=== PATIENT | male | born 1955 | race Caucasian/White ===

== ENCOUNTER 2016-02-29 09:12 | Day surgery (SDC) | payer MEDICARE, MEDICAID ==
[~2016-02-29] VITALS: Ht 170.2 cm; Wt 96.8 kg
[2016-02-29] MEDS ORDERED: METO-407 PO (09:59)
[2016-02-29] MEDS ORDERED: AMLO-147 PO (10:00)
[2016-02-29] MEDS ORDERED: ASPI-664 PO (10:00)
[2016-02-29] MEDS ORDERED: ATOR20TA38 PO (10:01)
[2016-02-29] MEDS ORDERED: VITA1TAB83 PO (10:01)
[2016-02-29] MEDS ORDERED: CALC667C PO (10:03)
[2016-02-29] MEDS ORDERED: CHOL100062 PO (10:04)
[2016-02-29] MEDS ORDERED: GABA100C14 PO (10:05)
[2016-02-29] MEDS ORDERED: CLON-379 PO (10:05)
[2016-02-29] MEDS ORDERED: APR50 PO (10:06)
[2016-02-29] MEDS ORDERED: LANT3I SC (10:07)
[2016-02-29] MEDS ORDERED: LISI40TA9 PO (10:07)
[2016-02-29] MEDS ORDERED: NOVO3I SC (10:09)
[2016-02-29] MEDS ORDERED: NEPH PO (10:09)
[2016-02-29] MEDS ORDERED: [UNRECOGNIZED DRUG - CODE] IM (10:10)
[2016-02-29] MEDS ORDERED: DOCU-159 PO (10:10)
[2016-02-29 10:32] LABS: BASOPHILS % 0.5 % (0.0-2.0); EOSINOPHILS # 0.2 10^3/ul (0.0-0.5); HEMATOCRIT 31.1 % (42.0-52.0); HEMOGLOBIN 10.5 g/dl (14.0-18.0); LYMPHOCYTES # 1.2 10^3/ul (0.8-2.9); LYMPHOCYTES % 21.2 % (15.0-51.0); MEAN CORPUSCULAR HGB CONC 33.8 g/dl (32.0-37.0); MEAN CORPUSCULAR VOLUME 97.6 fl (82.0-101.0); MEAN PLATELET VOLUME 7.5 fl (7.4-10.4); MONOCYTE # 0.4 10^3/ul (0.3-0.9); MONOCYTES % 7.2 % (0.0-11.0); NEUTROPHIL # 3.7 10^3/ul (1.6-7.5); NEUTROPHILS % 67.1 % (39.0-77.0); PLATELET COUNT 159 10^3/UL (140-440); RED BLOOD COUNT 3.19 10^6/ul (4.70-6.10); RED CELL DISTRIBUTION WIDTH 17.7 % (11.5-14.5); UNCORRECTED WBC 5.5 10^3/ul (4.8-10.8); WHITE BLOOD COUNT 5.5 10^3/ul (4.8-10.8)
[2016-02-29 10:33] LABS: CONDITION 1; LH ANALYZER COMMENTS 1
[2016-02-29 10:45] LABS: CREATININE 9.79 mg/dl (0.61-1.24); POTASSIUM 4.5 mmol/L (3.5-5.1)
[2016-02-29 10:49] LABS: CALCIUM 8.8 mg/dl (8.4-10.2)
--- NOTE | 2016-02-29 10:50 | RADRPT ---
PROCEDURE: XR Chest. CLINICAL INDICATION: Chest pain , preoperative, renal failure TECHNIQUE: Single portable view of the chest was obtained COMPARISON: None FINDINGS: The heart is enlarged. The lungs are clear. There is no pleural effusion or pneumothorax. RPTAT: AA IMPRESSION: Mild Cardiomegaly. .Ran Domingo MD, MD Date Time Electronically viewed and signed by .Ran Domingo MD, on 02/29/2016 10:50 .S/
[2016-02-29] MEDS ORDERED: HEPARIN 1000 UNITS/ML 10 ML INJ ONE (10:55)
[2016-02-29] MEDS ORDERED: LIDOCAINE 1% (MDV) 20 ML INJ ONE (10:55)
[2016-02-29] MEDS ORDERED: IODIXANOL LOCM 100 ML BTL ONE (10:55)
[2016-02-29] MEDS ORDERED: FENTAnyl 50 MCG/ML VIAL ONE (10:55)
[2016-02-29] MEDS ORDERED: MIDAZOLAM 1 MG/ML 2 ML INJ ONE (10:55)
[2016-02-29] MEDS ORDERED: HEPARIN 1000 UNITS/NS (A-LINE) 1,000 ML ONE (10:55)
[2016-02-29 11:00] LABS: INR 1.08; PARTIAL THROMBOPLASTIN TIME 27.6 Sec (25.0-35.0); PT RATIO 1.1
[2016-02-29 11:23] VITALS: BP 128/66; PULSE 81; RESP 18; Ht 170.2 cm; Wt 96.8 kg
--- NOTE | 2016-02-29 11:38 | PDOCDIS ---
Discharge Instructions DIAGNOSIS Discharge Diagnosis: ESRD CONDITION Patient Condition: Good HOME CARE INSTRUCTIONS: Special Diet: RENAL ACTIVITY: Activity Restrictions: Slowly Increase Activity Rest between Activity Avoid heavy lifting Do not Drive Do not operate Machinery Do not operate Power Tool Avoid Heavy Housework Bathing Restrictions: Shower FOLLOW UP/APPOINTMENTS Appointments MAY REMOVE DRESSING TOMORROW FOLLOWUP IN 2 WEEKS JOSHUA SCALES MD Feb 29, 2016 11:38
[2016-02-29 11:55] VITALS: BP 125/72; PULSE 77; RESP 18
--- NOTE | 2016-02-29 14:39 | OPR ---
DATE OF OPERATION: 02/29/2016 SURGEON: Sean Mata MD FLUOROSCOPY MACEDO: Dr. Jc Dc. PREOPERATIVE DIAGNOSES: End-stage renal disease and central stenosis. POSTOPERATIVE DIAGNOSES: End-stage renal disease and central stenosis. ANESTHESIA: Local with sedation. ESTIMATED BLOOD LOSS: Minimal. COMPLICATIONS: None. HEPARIN: 5000 units of heparin intravenously. CONTRAST: As recorded. ACCESS: 5-Maltese sheath. Left upper extremity fistula. CLOSURE: Manual compression and 3-0 nylon suture. INDICATIONS: This is a 60-year-old gentleman who presented with an aneurysmal left upper extremity fistula with increased velocities. The patient had some malfunctioning with his fistula during his dialysis session. The patient had been informed of alternatives, risks and benefits of a venogram b alloon angioplasty and stenting. Risks including but not limited to bleeding, thrombosis, embolizat ion, myocardial infarction, , stroke, device malfunction, infection nephrotoxicity and has agre ed to proceed. PROCEDURE: 1. Ultrasound-guided access of the left upper extremity fistula, photo-recorded. 2. Proximal axillary vein venoplasty with a [place] 8 x 6 mm balloon. 3. Central venogram (including subclavian vein, superior vena cava, internal jugular vein). 4. Left subclavian and brachiocephalic vein venoplasty with a [place] 8 x 6 mm balloon. FINDINGS: 1. Patent fistula, patent axillary vein, except in the mid aspect has some focal stenosis, patent l eft subclavian vein with a stent graft that has been placed that is patent. 2. At the distal aspect of the stent, there is a significant stenosis which entails a brachiocephal ic vein and the distal subclavian vein. 3. Patent superior vena cava. DESCRIPTION OF PROCEDURE: The patient was brought into the angio suite and positioned in supine pos ition on the fluoroscopic table. Sedation was administered without complications. Left upper extre mity was shaved, prepped and draped in the usual standard sterile fashion. A timeout and the approp riate site was marked and confirmed. Local anesthesia was infiltrated in the region of the left upp er extremity fistulogram. The fistula was then cannulated with a micro access needle under ultrasou nd guidance and guidewire was advanced into the distal fistula tract under fluoroscopic guidance. T he needle was removed and a microcatheter was placed. Multi ____ fistulogram and central venogram w as conducted. Findings are noted as above. Left upper extremity axillary vein was identified to jain ve a focal stenosis in the mid aspect of the axillary vein. Further distal to the stent graft that has been placed in the subclavian vein in the distal aspect, there was significant stenosis which al so entailed the proximal aspect of the brachiocephalic vein. This area was in the area of the thora cic outlet as well. Based on these findings, a 5-Maltese sheath was placed over a wire. Using a [employer] ros[employer] 8 x 6 mm balloon, we performed venoplasty of the central stenosis and axillary vein. There was adequate finding in the axillary vein; however, in the area of the clavicular curve which was dista l to the stent graft, there was still some residual stenosis. It seems that despite using a balloon to its maximal inflation, there was no change. At this point, there was satisfactory flow through the fistula tract and into the central vein. No further intervention was performed. The patient to lerated the procedure well. All catheters and wires were removed and using a 3-0 nylon suture to cl ose the puncture site. Manual compression was also applied. The patient was taken to postanesthesi a care unit in stable condition. PLAN: We will plan to have the patient follow up with us in 4 to 6 weeks in which he will undergo f istula ultrasound. He may require further intervention in the near future if that area has a recurr ence of his neointimal hyperplasia. Dictated By: SEAN CHONG/SALO Conf#: [id number] DID#: [id number]
--- NOTE | 2016-02-29 21:13 | RADRPT ---
Vent Rate: 73 bpm RR Interval: 0 msec OR Interval: 186 msec QRS Duration: 78 msec QT Interval: 424 msec QTC Interval: 467 msec P-R-T [place]: 54 - 8 - 18 degrees Normal sinus rhythm Normal ECG Electronically Signed By: Quinn Mckeon [id number]
== END 2016-02-29 15:38 | disposition home or self-care (01) ==
LOC: SDS 09:12
PROVIDERS: ATTEND Student in an Organized Health Care Education/Training Program
DX: I12.0 Hypertensive chronic kidney disease with stage 5 chronic kidney disease or end stage renal disease (principal); N18.6 End stage renal disease; Z99.2 Dependence on renal dialysis; I87.1 Compression of vein; E11.9 Type 2 diabetes mellitus without complications; I25.10 Atherosclerotic heart disease of native coronary artery without angina pectoris; E78.00 Pure hypercholesterolemia, unspecified
CPT/HCPCS: 37248; 37249; 71010; 80048; 85025; 85610; 85730; 93005; C1725; C1887; C1894; J1644; J2250; J3010; Q9967

== ENCOUNTER 2017-01-07 11:37 | Inpatient (IN) | payer MEDICARE, MEDICAID ==
[~2017-01-07] VITALS: Ht 170.2 cm; Wt 100.0 kg
[~2017-01-07 11:37] MED LIST: AMLO-147 PO; ASPI-664 PO; ATOR20TA38 PO; CALC667C PO; CHOL100062 PO; CLON-379 PO; DOCU-159 PO; GABA100C14 PO; HYDR-3672 PO; LANT3I SC; LISI40TA9 PO; METO-407 PO; NEPH PO; NOVO3I SC; VITA1TAB83 PO; [UNRECOGNIZED DRUG - CODE] IM
[2017-01-07 11:39] VITALS: Ht 170.2 cm; Wt 100.0 kg
[2017-01-07 11:56] LABS: BASOPHILS % 0.5 % (0.0-2.0); EOSINOPHILS # 0.2 10^3/ul (0.0-0.5); EOSINOPHILS % 3.6 % (0.0-7.0); HEMATOCRIT 28.7 % (42.0-52.0); HEMOGLOBIN 10.1 g/dl (14.0-18.0); LYMPHOCYTES # 1.7 10^3/ul (0.8-2.9); LYMPHOCYTES % 27.3 % (15.0-51.0); MEAN CORPUSCULAR HEMOGLOBIN 34.9 pg (29.0-33.0); MEAN CORPUSCULAR HGB CONC 35.2 g/dl (32.0-37.0); MEAN CORPUSCULAR VOLUME 99.3 fl (82.0-101.0); MEAN PLATELET VOLUME 10.8 fl (7.4-10.4); MONOCYTE # 0.7 10^3/ul (0.3-0.9); MONOCYTES % 11.5 % (0.0-11.0); NEUTROPHIL # 3.5 10^3/ul (1.6-7.5); NEUTROPHILS % 56.9 % (39.0-77.0); PLATELET COUNT 142 10^3/UL (140-415); RED BLOOD COUNT 2.89 10^6/ul (4.70-6.10); RED CELL DISTRIBUTION WIDTH 15.8 % (11.5-14.5); WHITE BLOOD COUNT 6.1 10^3/ul (4.8-10.8)
--- NOTE | 2017-01-07 12:12 | RADRPT ---
PROCEDURE: XR Chest. CLINICAL INDICATION: Altered mental status. TECHNIQUE: Single frontal view. COMPARISON: 02/29/2016. FINDINGS: The lungs are clear. The heart is enlarged. There is no pleural effusion. There is no pneumothorax. IMPRESSION: 1. Cardiomegaly. 2. Otherwise unremarkable chest radiograph. RPTAT: QQ .Yaya Angela MD, MD Date Time Electronically viewed and signed by .Yaya Angela MD, MD on 01/07/2017 12:11 .R/
[2017-01-07 12:19] LABS: ALANINE AMINOTRANSFERASE 38 IU/L (13-69); ALBUMIN 4.1 g/dl (3.3-4.9); ALBUMIN/GLOBULIN RATIO 1.46; ALKALINE PHOSPHATASE 86 IU/L (42-121); ANION GAP 26 (8-16); ASPARTATE AMINO TRANSFERASE 19 IU/L (15-46); BLOOD UREA NITROGEN 62 mg/dl (7-20); CALCIUM 9.6 mg/dl (8.4-10.2); CARBON DIOXIDE 25 mmol/L (21-31); CHLORIDE 94 mmol/L (97-110); CREATININE 12.52 mg/dl (0.61-1.24); GLUCOSE 202 mg/dl (70-220); POTASSIUM 4.7 mmol/L (3.5-5.1); SODIUM 140 mmol/L (135-144); TOTAL PROTEIN 6.9 g/dl (6.1-8.1)
[2017-01-07 12:32] LABS: TROPONIN-I < 0.012 ng/ml (0.00-0.12)
[2017-01-07] MEDS ORDERED: GABA300C16 PO (12:34)
[2017-01-07] MEDS ORDERED: ACET-2047 PO (12:35)
[2017-01-07] MEDS ORDERED: ZOLP10TA5 PO (12:35)
[2017-01-07 12:39] LABS: INR 1.02; PROTIME 13.4 Sec (12.2-14.2)
[2017-01-07 12:40] LABS: PARTIAL THROMBOPLASTIN TIME 28.1 Sec (25.0-35.0)
--- NOTE | 2017-01-07 12:55 | RADRPT ---
PROCEDURE: CT Brain without contrast. CLINICAL INDICATION: Altered mental status. TECHNIQUE: A CT of the brain was performed on multidetector high-resolution CT scanner utilizing a xial sections from the skull base through the vertex without contrast. The scan was reviewed in sof t tissue brain and high frequency resolution bone algorithm windows. Images were reviewed on a high -resolution PACS workstation. One or more the following does reduction techniques were utilized: Aut omated exposure control, adjustment of the mA/ or kV according to patient's size, or use of iterativ e reconstruction technique. The exam CTDI = 44.33 mGy and the DLP = 720.23 mGy-cm. DICOM images are available. COMPARISON: None available. FINDINGS: The ventricles and sulci are mildly prominent indicative of volume loss. There is no intracranial he morrhage, mass effect or midline shift. No abnormal intra-axial or extra-axial fluid collections ar e seen. The segura/white matter differentiation is preserved. There are mild scattered foci of hypoattenuation in the white matter, which are nonspecific in etiol ogy but likely reflect chronic small vessel ischemic changes. There are minimal intracranial vascul ar calcifications consistent with atherosclerosis. The visualized paranasal sinuses are essentially clear. IMPRESSION: 1. No acute intracranial hemorrhage, transcortical infarction or mass effect. 2. Minimal intracranial atherosclerosis and mild chronic small vessel ischemic changes. 3. Mild generalized cerebral volume loss. RPTAT: HH .Ijeoma Alfredo MD, MD Date Time Electronically viewed and signed by .Ijeoma Alfredo MD, MD on 01/07/2017 12:55 .N/
--- NOTE | 2017-01-07 13:11 | ERD ---
ER Documentation Chief Complaint Chief Complaint biba [id number], in car, weak, slow speech, answering questions appropriately HPI This is a 61-year-old diabetic male with a history of end-stage renal disease on dialysis who had dialysis yesterday. The patient presents with generalized weakness today. He states that when he woke up this morning he just did not feel right. He has noted clumsiness to bilateral hands, generalized weakness. He also states that occasionally he was having difficulty speaking. He states that these symptoms are dramatically resolved and improved at this point. He denies any chest pain or shortness of breath, no fevers or chills, no headache no recent falls or injury. ROS All systems reviewed and are negative except as per history of present illness. Medications Home Meds Reported Medications Acetaminophen* (Acetaminophen*) 650 Mg Tablet, 650 MG PO Q8 Y for PAIN AND OR ELEVATED TEMP, #30 TAB 01/07/17 Zolpidem Tartrate* (Zolpidem Tartrate*) 10 Mg Tablet, 10 MG PO QHS Y for INSOMNIA, #30 TAB 01/07/17 Gabapentin* (Gabapentin*) 300 Mg Capsule, 300 MG PO TID, #90 CAP 01/07/17 Docusate Sodium* (Docusate Sodium*) 100 Mg Capsule, 100 MG PO BID, #60 CAP 02/29/16 Multivit/Ca Carb/B Cmplx/Fa* (Katt-Jose*) 1 Tab Tab, 1 TAB PO DAILY, TAB 02/29/16 Insulin Aspart* (Novolog Insulin Pen*) 100 Unit/Ml Soln, 0 SC .SLIDING SCALE AC , EA EVERY 8 HOURS 150-200 = 2 UNITS 201-250 = 4 UNITS 251-300 = 6 UNITS 02/29/16 Lisinopril* (Lisinopril*) 40 Mg Tablet, 40 MG PO DAILY, #30 TAB 02/29/16 Insulin Glargine* (Lantus*) 100 Unit/Ml Soln, 5 UNIT SC QHS, #1 VIAL 02/29/16 Hydralazine Hcl* (Hydralazine Hcl*) 50 Mg Tab, 50 MG PO DAILY, #120 TAB 02/29/16 Clonidine Hcl* (Clonidine Hcl*) 0.1 Mg Tab, 0.1 MG PO Q8 Y for ELEVATED BLOOD PRESSURE, TAB 02/29/16 Cholecalciferol* (Vitamin D3*) 1,000 Unit Tablet, 1000 UNIT PO DAILY, TAB 02/29/16 Calcium Acetate* (Calcium Acetate*) 667 Mg Capsule, 2001 MG PO WITH MEALS, #90 CAP 02/29/16 Vitamin B Complex (B Complex # 1) 1 Each Tablet, 1 EACH PO DAILY, TAB 02/29/16 Atorvastatin Calcium* (Atorvastatin Calcium*) 20 Mg Tablet, 20 MG PO QHS, #30 TAB 02/29/16 Aspirin (Low Dose Aspirin) 81 Mg Tablet.dr, 81 MG PO DAILY, #30 TAB 02/29/16 Amlodipine Besylate* (Amlodipine Besylate*) 10 Mg Tablet, 10 MG PO QHS, #30 TAB 02/29/16 Metoprolol Tartrate* (Lopressor*) 100 Mg Tablet, 100 MG PO BID, #60 TAB 02/29/16 Discontinued Reported Medications Cyanocobalamin* (Vitamin B12*) 1,000 Mcg/Ml Soln, 1000 MCG IM DAILY, VIAL 02/29/16 Gabapentin* (Gabapentin*) 100 Mg Capsule, 200 MG PO DAILY, #180 CAP 02/29/16 Allergies Allergies: Coded Allergies: No Known Allergy (Unverified , 01/07/17) PMhx/Soc History of Surgery: Yes (right upper arm lumpectomy, fistula creation left arm) Anesthesia Reaction: No Hx Neurological Disorder: No Hx Respiratory Disorders: No Hx Cardiac Disorders: Yes (htn, high cholest, dmii) Hx Psychiatric Problems: No Hx Miscellaneous Medical Probl: No Hx Alcohol Use: Yes (ADMITS TO DAILY USE 12/28) Hx Substance Use: No Hx Tobacco Use: No Smoking Status: Never smoker FmHx Family History: diabetes Physical Exam Vitals Vital Signs Date Time Temp Pulse Resp B/P Pulse Ox O2 Delivery O2 Flow Rate FiO2 01/07/17 11:39 97.7 80 28 155/81 99 Physical Exam General: Well developed, well nourished, no acute distress Head: Normocephalic, atraumatic. Eyes: Pupils equally reactive, EOM intact ENT: Moist mucous membranes Neck: Supple, no lymphadenopathy Respiratory: Lungs clear bilaterally, no distress Cardiovascular: RRR, no murmurs, rubs, or gallops Abdominal: Soft, non-tender, non-distended, no peritoneal signs : Deferred MSK: No edema, no unilateral swelling, 5/5 strength Neurologic: Alert and oriented, moving all extremities, normal speech, no focal weakness, no cerebellar signs no pronator drift, NIH scale of 0 Skin: No rash Psych: Normal mood Result Diagram: 01/07/17 1140 01/07/17 1140 Results 24 hrs Laboratory Tests Test 01/07/17 11:40 01/07/17 13:10 White Blood Count 6.110^3/ul Red Blood Count 2.8910^6/ul Hemoglobin 10.1g/dl Hematocrit 28.7% Mean Corpuscular Volume 99.3fl Mean Corpuscular Hemoglobin 34.9pg Mean Corpuscular Hemoglobin Concent 35.2g/dl Red Cell Distribution Width 15.8% Platelet Count 98259^3/UL Mean Platelet Volume 10.8fl Neutrophils % 56.9% Lymphocytes % 27.3% Monocytes % 11.5% Eosinophils % 3.6% Basophils % 0.5% Nucleated Red Blood Cells % 0.0/100WBC Neutrophils # 3.510^3/ul Lymphocytes # 1.710^3/ul Monocytes # 0.710^3/ul Eosinophils # 0.210^3/ul Basophils # 0.010^3/ul Nucleated Red Blood Cells # 0.010^3/ul Prothrombin Time 13.4Sec Prothrombin Time Ratio 1.0 INR International Normalized Ratio 1.02 Activated Partial Thromboplast Time 28.1Sec Sodium Level 140mmol/L Potassium Level 4.7mmol/L Chloride Level 94mmol/L Carbon Dioxide Level 25mmol/L Anion Gap 26 Blood Urea Nitrogen 62mg/dl Creatinine 12.52mg/dl Glucose Level 202mg/dl Calcium Level 9.6mg/dl Total Bilirubin 0.0mg/dl Direct Bilirubin 0.00mg/dl Indirect Bilirubin 0.0mg/dl Aspartate Amino Transf (AST/SGOT) 19IU/L Alanine Aminotransferase (ALT/SGPT) 38IU/L Alkaline Phosphatase 86IU/L Troponin I < 0.012ng/ml Total Protein 6.9g/dl Albumin 4.1g/dl Globulin 2.80g/dl Albumin/Globulin Ratio 1.46 Free Thyroxine Index 2.11ug/ml Thyroxine (T4) 6.2ug/dl Triiodothyronine (T3) Uptake 34.0% Urine Color YELLOW Urine Clarity CLEAR Urine pH 8.0 Urine Specific [place] 1.012 Urine Ketones NEGATIVEmg/dL Urine Nitrite NEGATIVEmg/dL Urine Bilirubin NEGATIVEmg/dL Urine Urobilinogen NEGATIVEmg/dL Urine Leukocyte Esterase 2+Smith/ul Urine Microscopic RBC 1/HPF Urine Microscopic WBC 48/HPF Urine Hemoglobin 1+mg/dL Urine Glucose 2+mg/dL Urine Total Protein 2+mg/dl Current Medications Medications (Trade) Dose Ordered Sig/Dimple Route PRN Reason Start Time Stop Time Status Last Admin Dose Admin Aspirin (Aspirin) 162 mg ONCE ONCE PO 01/07/17 13:30 01/07/17 13:31 DC 01/07/17 13:09 Ondansetron HCl (Zofran Inj) 4 mg ER BRIDGE PRN IV NAUSEA AND/OR VOMITING 01/07/17 13:30 01/08/17 13:29 Acetaminophen (Tylenol Tab) 650 mg ER BRIDGE PRN PO MILD PAIN/FEVER 01/07/17 13:30 01/08/17 13:29 Procedures/MDM EKG, MONITORS, & DIAGNOSTIC IMAGING: EKG: I reviewed and interpreted a 12-lead EKG. Rhythm: Normal sinus rhythm Ectopy: None Intervals: No abnormalities ST segments: No elevations or depressions T waves: No contiguous inversions Chest x-ray: I reviewed and interpreted a 1 view of the chest Mediastinum: No enlargement Cardiac silhouette: No cardiomegaly Airspace: Clear lung pierce bilaterally without evidence of pneumothorax Bones: No evidence of fracture CT brain: No evidence of acute intracranial process LAB INTERPRETATION: No leukocytosis, evidence of end-stage renal disease MEDICAL DECISION MAKING: Patient presents to the emergency room with generalized weakness. He had bilateral symptoms, he did have dysarthria. However, the symptoms have completely resolved. Given that his NIH is 0 and the fact that he woke up with these symptoms with unknown duration prior to that I do not believe that the patient warrants stroke code activation. Additionally, given the complete resolution of symptoms, NiH of 0 the patient is not a candidate for TPA given the risks greatly outweigh the benefits. Additionally the patient is not an interventional candidate given NIH scale of 0. However, concern for possible TIA and the patient will benefit from inpatient hospitalization. ER COURSE: Laboratory testing and diagnostic imaging are unrevealing. The patient is resting comfortably. Aspirin provided. The patient will be admitted for further management and MRI imaging. I kept the patient and/or family informed of laboratory and diagnostic imaging results throughout the emergency room course. DISPOSITION PLAN: Telemetry admission to rule out TIA CONSULTATION: Accepting care team and consultations: I discussed the current laboratory data, diagnostic imaging and emergency care provided. Admitting team: Dr. Yeboah Admitting team indication: Insurance directed Departure Diagnosis: Primary Impression: Generalized weakness Additional Impressions: End stage renal disease on dialysis TIA (transient ischemic attack) Transient cerebral ischemia type: unspecified Qualified Code: G45.9 - Transient cerebral ischemia, unspecified type Condition: Stable JAVY HOPPER MD Jan 07, 2017 13:11
[2017-01-07] MEDS ORDERED: ASPIRIN 81 MG TAB PO ONE (13:30)
[2017-01-07] MEDS ORDERED: ONDANSETRON 4 MG INJ IV PRN (13:30)
[2017-01-07] MEDS ORDERED: ACETAMINOPHEN 325 MG TAB PO PRN (13:30)
[2017-01-07 13:39] LABS: ADD UMIC YES; UR ASCORBIC ACID NEGATIVE (NEGATIVE); UR BILIRUBIN (Dip) NEGATIVE (NEGATIVE); UR BLOOD (Dip) 1+ mg/dL (NEGATIVE); UR CLARITY CLEAR (CLEAR); UR COLOR YELLOW (YELLOW); UR GLUCOSE (Dip) 2+ mg/dL (NEGATIVE); UR KETONES (Dip) NEGATIVE (NEGATIVE); UR LEUKOCYTE ESTERASE (Dip) 2+ Leu/ul (NEGATIVE); UR NITRITE (Dip) NEGATIVE (NEGATIVE); UR RBC 1 /HPF (0-5); UR SPECIFIC GRAVITY (Dip) 1.012 (1.003-1.030); UR TOTAL PROTEIN (Dip) 2+ mg/dl (NEGATIVE); UR UROBILINOGEN (Dip) NEGATIVE (NEGATIVE)
[2017-01-07 15:38] VITALS: BP 155/90; PULSE 68; RESP 20
[2017-01-07 16:00] VITALS: PULSE 68
[2017-01-07] MEDS ORDERED: ZOLPIDEM 5 MG TAB PO PRN ×2 (17:30)
[2017-01-07] MEDS ORDERED: NACL 0.9% 3 ML SYG IV SCH (17:30)
[2017-01-07] MEDS ORDERED: ASPIRIN (EC) 81 MG TAB PO SCH (17:30)
[2017-01-07] MEDS ORDERED: ASPIRIN 81 MG TAB PO SCH (17:30)
[2017-01-07 19:09] VITALS: BP 182/86; PULSE 72; RESP 17
[2017-01-07] MEDS ORDERED: DEXTROSE 50% 50 ML SYRINGE IV PRN ×2 (19:30)
[2017-01-07] MEDS ORDERED: GLUCOSE GEL 15 GRAM TUBE PO PRN ×2 (19:30)
[2017-01-07] MEDS ORDERED: GLUCAGON 1 MG INJ IM PRN (19:30)
[2017-01-07] MEDS ORDERED: GLUCOSE GEL 15 GRAM TUBE BUCCAL PRN (19:30)
[2017-01-07] MEDS ORDERED: ATORVASTATIN 20 MG TAB ONE (19:45)
[2017-01-07] MEDS ORDERED: DOCUSATE SODIUM 100 MG CAP PO ONE (19:45)
[2017-01-07] MEDS ORDERED: GABAPENTIN 300 MG CAP ONE (19:45)
[2017-01-07] MEDS: CLOPIDOGREL 75 MG TAB PO SCH (19:56)
[2017-01-07] MEDS: CALCIUM ACETATE 667 MG CAP PO SCH (19:57)
[2017-01-07] MEDS: ATORVASTATIN 20 MG TAB PO SCH (19:57)
[2017-01-07] MEDS: DOCUSATE SODIUM 100 MG CAP PO SCH (19:57)
[2017-01-07] MEDS: GABAPENTIN 300 MG CAP PO SCH (19:59)
[2017-01-07] MEDS: METOPROLOL 100 MG TAB PO SCH (19:59)
[2017-01-07 20:00] VITALS: PULSE 71
--- NOTE | 2017-01-07 20:02 | PREOPHP ---
DATE OF ADMISSION: 01/07/2017 REASON FOR ADMISSION: Transiently altered speech and right arm weakness. HISTORY OF PRESENT ILLNESS: This 61-year-old man says that he has been in his usual state of health until early this morning when, while getting out of bed, he said that he had some right arm weaknes s. He said he tried to get out of bed and actually fell to the floor. 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 Both of them told him that samuel monteiro could not understand his speech. The patient did not notice a problem, but both of them told hi vinh he was not able to be understood. The patient then had a dizzy episode while walking up steps. Ayse crocker then tried to go to his car to drive to the hospital; however, paramedics were called and he was b rought into the emergency room here by paramedics. He thinks that the episode of altered speech las [place] about an hour. His speech now is fluent. Apparently, when he was in the ER, his speech was flu ent. The patient says that he has had a headache. He continues to have some right arm tingling and numbness, but there is no weakness at this time. The patient said that last week on , he was with his sons and one of his sons said that his speech was a little slurred, although nothing else happened with this. The patient does have end-stage renal disease and is on maintenance hemod ialysis. His last dialysis was 2 days ago and he is due tomorrow for a dialysis treatment. The pat lizeth said that he had a similar episode to this in 2009, prior to being on dialysis and his blood pr essure medicine was adjusted. PAST MEDICAL HISTORY: The patient has the following past medical history: Diabetes mellitus since 1993, hypertension, end-stage renal disease, hyperlipidemia, peripheral neuropathy, colon polyps. PAST SURGICAL HISTORY: Left arm fistula in 2014, right shoulder benign tumor resected, tonsillectom y. FAMILY HISTORY: Both parents are . Mother diagnosed with diabetes, heart disease and strok e. Father: Colon cancer. SOCIAL HISTORY: The patient does not smoke. He does drink alcohol socially. OCCUPATION: [employer]. CURRENT MEDICATIONS: Include the followin. Aspirin 81 mg a day. 2. Vitamin B complex. 3. PhosLo 3 tablets orally 3 times a day. 4. Vitamin D3 at 1000 units daily. 5. Stool softener 100 mg p.o. twice a day. 6. Vitamin B12 1000 mcg tablets once a day. 7. NovoLog FlexPen sliding scale insulin. 8. Lantus 5 units subcutaneous at bedtime. 9. Clonidine 0.3 mg tablets 1 tablet 3 times a day as needed for high blood pressure. 10. Lisinopril 20 mg a day. 11. Hydralazine 50 mg once a day. 12. Katt-Jose 1 a day. 13. Folic acid 1 mg a day. 14. Gabapentin 3 capsules 3 times a day. 15. Metoprolol tartrate 100 mg twice a day. 16. Amlodipine 5 mg a day. 17. Atorvastatin 20 mg a day. 18. Ambien 10 mg at bedtime. PHYSICAL EXAMINATION: GENERAL: At this time reveals a well-developed man in no apparent distress. VITAL SIGNS: Temperature 98, pulse of 68, respirations 20, blood pressure 155/90, pulse ox on room air 100%. HEAD: Normocephalic. No signs of head trauma. EYES: Extraocular muscles intact. Pupils are equal, round and reactive to light. NOSE AND MOUTH: Normal. NECK: Supple. No neck vein distention. LUNGS: Clear to auscultation. HEART: Regular rhythm. No murmurs, gallops or rubs. ABDOMEN: Soft, nontender. He does have an umbilical hernia. EXTREMITIES: No peripheral edema. Left upper arm AV fistula with good thrill. NEUROLOGIC: Grossly intact. No obvious focal neurologic deficits. Normal gait. Normal cranial ne rves. IMPRESSION: 1. This patient presents now with transient altered speech that was difficult to understand. He al so had some right arm weakness and numbness. His speech is now back to normal. The patient is flue nt. He has no obvious right arm weakness at this time. His gait is normal and intact. His symptom s are very suggestive of a transient ischemic attack. The patient has been on aspirin 81 mg a day. 2. Cough, possibly upper respiratory infection. 3. End-stage renal disease, on maintenance hemodialysis. He is due for dialysis tomorrow. 4. Hypertension. 5. Hyperlipidemia. PLAN: 1. Hemodialysis ordered for tomorrow. 2. Resume routine medications. 3. Discontinue aspirin and start Plavix 75 mg a day. 4. MRI of the brain. 5. Neurological consultation to be called. Dictated By: JAVY BRIONES MD ND/NTS Conf#: [id number] DID#: [id number] CC: JAVY BRIONES MD;*EndCC*
[2017-01-07] MEDS ORDERED: AMLODIPINE 10 MG TAB PO SCH (21:00)
[2017-01-07] MEDS: INSULIN GLARGINE [LANtus] 3 ML PEN SC SCH ×2 (21:00→22:07)
[2017-01-07] MEDS: AMLODIPINE 10 MG TAB PO SCH (21:58)
[2017-01-07] MEDS: INSULIN ASPART [NOVOLOG] 3 ML PEN SC SCH (22:07)
[2017-01-07 22:35] VITALS: BP 126/73; PULSE 74; RESP 18
[2017-01-08] VITALS (21 sets, daily range): BP systolic 101–168; BP diastolic 55–84; PULSE 65–78; RESP 17–20
[2017-01-08] MEDS: ACETAMINOPHEN 325 MG TAB PO PRN ×2 (01:31→17:54)
[2017-01-08] MEDS: GUAIFENESIN/CODEINE 5ML CUP PO PRN ×2 (01:31→12:08)
[2017-01-08] MEDS: ACCU-CHEK XX SCH (01:35)
[2017-01-08] MEDS ORDERED: LISINOPRIL 10 MG TAB ONE (07:59)
[2017-01-08] MEDS: DOCUSATE SODIUM 100 MG CAP PO SCH ×2 (08:29→20:29)
[2017-01-08] MEDS: MULTIVIT/CA CARB/B CMPLX/FA TAB PO SCH (08:29)
[2017-01-08] MEDS: CLOPIDOGREL 75 MG TAB PO SCH (08:29)
[2017-01-08] MEDS: GABAPENTIN 300 MG CAP PO SCH ×3 (08:29→20:30)
[2017-01-08] MEDS: CHOLECALCIFEROL 1,000 UNIT TAB PO SCH (08:29)
[2017-01-08] MEDS: CALCIUM ACETATE 667 MG CAP PO SCH ×3 (08:29→17:54)
[2017-01-08] MEDS: METOPROLOL 100 MG TAB PO SCH ×2 (08:30→20:30)
[2017-01-08] MEDS: LISINOPRIL 20 MG TAB PO SCH (08:30)
[2017-01-08] MEDS: INSULIN ASPART [NOVOLOG] 3 ML PEN SC SCH ×4 (08:40→20:31)
[2017-01-08] MEDS ORDERED: VITAMIN B COMPLEX PO SCH (09:00)
[2017-01-08] MEDS ORDERED: LISINOPRIL 20 MG TAB PO SCH (09:00)
--- NOTE | 2017-01-08 11:01 | RADRPT ---
PROCEDURE: Carotid ultrasound CLINICAL INDICATION: Transient ischemic attack, carotid bruits TECHNIQUE: Small scale, color doppler, spectral doppler ultrasound of the bilateral carotid and tami tebral arteries. This study indirectly references the measurement of the distal ICA diameter as the denominator for s tenosis measurement. Validated velocity measurements with angiographic measurements, velocity criter ia are extrapolated from diameter data as defined by: *Cartoid artery stenosis: small-scale and Doppl er US diagnosis. Society of Radiologists in Ultrasound Consensus Conference. Radiology 2003; 229: 34 0-346. SRU Consensus Conference Criteria for the Diagnosis of Carotid Artery Stenosis* Degree of Stenosis, % ICA PSV, cm/sec Plaque Estimate, % ICA/CCA PSV Ratio Normal <125 None <2.0 <50 <125 <50 <2.0 50 69 125-230 >50 2.0-4.0 >70 but less than near occlusion >230 >50 <4.0 Near occlusion High, low, or undetectable Visible Variable Total occlusion Undetectable Visible, no detectable lumen Not applicable COMPARISON: No prior studies are available for comparison. FINDINGS: Location Right CCA79 - 87 cm/sec Prox ICA 66 cm/sec Mid ICA84 cm/sec Dist ICA59 cm/sec ECA97 cm/sec ICA/CCA1.1 Left CCA71 - 94 cm/sec Prox ICA 53 cm/sec Mid ICA38 cm/sec Dist ICA54 cm/sec ECA68 cm/sec ICA/CCA0.8 Plaque burden: Small plaques present bilaterally involving the common, internal, and external caroti d arteries. Antegrade flow is seen within the vertebral arteries bilaterally. IMPRESSION: Plaques are present within both internal carotid arteries without evidence of flow acceleration to s uggest a hemodynamically significant stenosis; less than 50% stenosis bilaterally. RPTAT: AADD .Justin Zayas MD, MD Date Time Electronically viewed and signed by .Justin Zayas MD, MD on 01/08/2017 11:01 .B/
--- NOTE | 2017-01-08 11:16 | CONS ---
Date/Time of Note Date/Time of Note DATE: 01/08/17 TIME: 11:11 Assessment/Plan Assessment/Plan Chief Complaint/Hosp Course 61 yo male w hx of ESRD, HLD prior CVA admitted for work up of transient dysarthria and right sided weakness. MRI Brain MRA Head/ Neck w/o contrast ASA 81 mg EC also on Plavix 75 mg SBP less than 140/90 ECHO Fasting lipid panel check HBA1C PT/OT/Speech DVT ppx will follow Problems: Consultation Date/Type/Reason Admit Date/Time Jan 07, 2017 at 13:06 Date of Consultation: Jan 08, 2017 Type of Consultation: Neurology Reason for Consultation CVA Referring Provider: JAVY BRIONES MD Hx of Present Illness 61 yo male hx of ESRD on HD, DM, HLD prior CVA reported a few years ago awoke with dysarthria and right sided weakness. 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 Speech difficulty lasted about an hour and resolved, right arm weakness is persistent. He reports similar issues in the past w CVA. right sided numbness and weakness Past Medical History as per HPI Social History Smoking Status: Never smoker Exam/Review of Systems Vital Signs Vitals Vital Signs Date Time Temp Pulse Resp B/P Pulse Ox O2 Delivery O2 Flow Rate FiO2 01/08/17 09:42 71 01/08/17 07:52 97.8 19 133/71 98 01/07/17 22:35 Room Air Intake and Output 01/07/17 01/07/17 01/08/17 15:00 23:00 07:00 Intake Total 420 ml Output Total 1 ml Balance 419 ml Exam Constitutional: alert, obese, oriented Neurological: PROGRAM CLINICIAN II-XII intact, DTR's symmetric (mild weakness finger tapping right UE, otherwise strength is symmetric), nl mental status, nl speech, nl strength Results Result Diagram: 01/07/17 1140 01/07/17 1140 Results 24 hrs Laboratory Tests Test 01/07/17 11:40 01/07/17 13:10 01/07/17 21:59 01/08/17 01:30 White Blood Count 6.1 Red Blood Count 2.89 L Hemoglobin 10.1 L Hematocrit 28.7 L Mean Corpuscular Volume 99.3 Mean Corpuscular Hemoglobin 34.9 H Mean Corpuscular Hemoglobin Concent 35.2 Red Cell Distribution Width 15.8 H Platelet Count 142 Mean Platelet Volume 10.8 #H Neutrophils % 56.9 Lymphocytes % 27.3 Monocytes % 11.5 H Eosinophils % 3.6 Basophils % 0.5 Nucleated Red Blood Cells % 0.0 Neutrophils # 3.5 Lymphocytes # 1.7 Monocytes # 0.7 Eosinophils # 0.2 Basophils # 0.0 Nucleated Red Blood Cells # 0.0 Prothrombin Time 13.4 Prothrombin Time Ratio 1.0 INR International Normalized Ratio 1.02 Activated Partial Thromboplast Time 28.1 Sodium Level 140 Potassium Level 4.7 Chloride Level 94 L Carbon Dioxide Level 25 Anion Gap 26 H Blood Urea Nitrogen 62 H Creatinine 12.52 H Glucose Level 202 Calcium Level 9.6 Total Bilirubin 0.0 L Direct Bilirubin 0.00 Indirect Bilirubin 0.0 Aspartate Amino Transf (AST/SGOT) 19 Alanine Aminotransferase (ALT/SGPT) 38 Alkaline Phosphatase 86 Troponin I < 0.012 Total Protein 6.9 Albumin 4.1 Globulin 2.80 Albumin/Globulin Ratio 1.46 Free Thyroxine Index 2.11 Thyroxine (T4) 6.2 Triiodothyronine (T3) Uptake 34.0 Urine Color YELLOW Urine Clarity CLEAR Urine pH 8.0 Urine Specific [place] 1.012 Urine Ketones NEGATIVE Urine Nitrite NEGATIVE Urine Bilirubin NEGATIVE Urine Urobilinogen NEGATIVE Urine Leukocyte Esterase 2+ H Urine Microscopic RBC 1 Urine Microscopic WBC 48 H Urine Hemoglobin 1+ H Urine Glucose 2+ H Urine Total Protein 2+ H Bedside Glucose 201 160 Test 01/08/17 08:28 Bedside Glucose 154 Medications Medications Current Medications Acetaminophen (Tylenol Tab) 650 mg Q6H PRN PO PAIN LEVEL 1-3 OR FEVER Last administered on 01/08/17 01:31; Admin Dose 650 MG; Start 01/07/17 at 17:30 Atorvastatin Calcium (Lipitor) 20 mg QHS PO Last administered on 01/07/17 19: 57; Admin Dose 20 MG; Start 01/07/17 at 21:00 Cholecalciferol (Vitamin D) 1,000 unit DAILY PO Last administered on 08:29; Admin Dose 1,000 UNIT; Start 01/08/17 at 09:00 Clonidine (Catapres) 0.1 mg Q8H PRN PO SBP > 160 Last administered on 20:00; Admin Dose 0.1 MG; Start 01/07/17 at 17:00 Docusate Sodium (Colace) 100 mg BID PO Last administered on 01/08/17 08:29; Admin Dose 100 MG; Start 01/07/17 at 21:00 Gabapentin (Neurontin) 300 mg TID PO Last administered on 01/08/17 08:29; Admin Dose 300 MG; Start 01/07/17 at 21:00 Insulin Glargine (Lantus) 5 unit QHS SC Last administered on 01/07/17 22:07; Admin Dose 5 UNIT; Start 01/07/17 at 21:00 Metoprolol Tartrate (Lopressor) 100 mg BID PO Last administered on 01/07/17 19:59; Admin Dose 100 MG; Start 01/07/17 at 21:00 Multivit/Ca Carb/ B Cmplx/FA/Prenat (Katt-Jose) 1 tab DAILY PO Last administered on 01/08/17 08:29; Admin Dose 1 TAB; Start 01/08/17 at 09:00 Zolpidem Tartrate (Ambien) 10 mg QHS PRN PO INSOMNIA; Start 01/07/17 at 17:30 Amlodipine Besylate (Norvasc) 5 mg QHS PO Last administered on 01/07/17 21:58 ; Admin Dose 5 MG; Start 01/07/17 at 21:00 Hydralazine HCl (Apresoline) 50 mg BID PO ; Start 01/08/17 at 09:00 Clopidogrel Bisulfate (plaVIX) 75 mg DAILY PO Last administered on 01/08/17 08:29; Admin Dose 75 MG; Start 01/07/17 at 19:00 Diagnostic Test (Pha) (Accu-Chek) 1 ea 02 XX ; Start 01/08/17 at 02:00 Epoetin Klever (Epogen (Esrd)) 10,000 units MoWeFr@17 SC ; Start 01/09/17 at 17: 00 Miscellaneous Information 1 ea NOTE XX ; Start 01/07/17 at 19:30 Glucose (Glutose) 15 gm Q15M PRN PO DECREASED GLUCOSE; Start 01/07/17 at 19:30 Glucose (Glutose) 22.5 gm Q15M PRN PO DECREASED GLUCOSE; Start 01/07/17 at 19: 30 Dextrose (D50w Syringe) 25 ml Q15M PRN IV DECREASED GLUCOSE; Start 01/07/17 at 19:30 Dextrose (D50w Syringe) 50 ml Q15M PRN IV DECREASED GLUCOSE; Start 01/07/17 at 19:30 Glucagon (Glucagen) 1 mg Q15M PRN IM DECREASED GLUCOSE; Start 01/07/17 at 19: 30 Glucose (Glutose) 15 gm Q15M PRN BUCCAL DECREASED GLUCOSE; Start 01/07/17 at 19:30 Lisinopril (Zestril) 20 mg DAILY PO ; Start 01/08/17 at 09:00 Guaifenesin/ Codeine Phosphate (Robitussin Ac Liquid Cup) 5 ml Q4H PRN PO COUGH Last administered on 01/08/17t 01:31; Admin Dose 5 ML; Start 01/07/17 at 19:30 STEVEN GRAVES MD Jan 08, 2017 11:16
--- NOTE | 2017-01-08 13:38 | PN ---
Date/Time of Note Date/Time of Note DATE: 01/08/17 TIME: 13:34 Assessment/Plan VTE Prophylaxis VTE Prophylaxis Intervention: other Lines/Catheters Urinary Cath still in place: No Assessment/Plan Chief Complaint/Hosp Course 1. Altered speech pattern. This patient was admitted yesterday with transient altered speech pattern and some right arm weakness. This speech has improved and he is now fluent and back to normal. He has some very slight right hand weakness and tremor. He is overall feeling better. He was seen by neurology. He has an MRI of the brain pending. I switched him from aspirin to Plavix. This was done because I suspect he may have had a TIA and has failed aspirin. 2. End-stage renal disease on maintenance hemodialysis. He had a hemodialysis treatment this morning which is his regular day for dialysis. 3. Anemia of chronic kidney disease on Epogen 4. Hypertension 5. Diabetes mellitus. Problems: Subjective 24 Hr Interval Summary Free Text/Dictation Patient is feeling better today. He still has some very slight hand weakness and tremor. He has not had any speech problems today. He had hemodialysis done this morning without a problem. Constitutional: improved, no complaints Respiratory: no complaints Cardiovascular: no complaints Gastrointestinal: no complaints Neurologic: focal-weakness Exam/Review of Systems Vital Signs Vitals Vital Signs Date Time Temp Pulse Resp B/P Pulse Ox O2 Delivery O2 Flow Rate FiO2 01/08/17 11:56 97.8 74 18 138/70 98 01/07/17 22:35 Room Air Intake and Output 01/07/17 01/07/17 01/08/17 15:00 23:00 07:00 Intake Total 420 ml Output Total 1 ml Balance 419 ml Exam Constitutional: alert, oriented, well developed ENMT: nl external ears & nose, nl lips & teeth, nl nasal mucosa & septum Neck: non-tender, supple Respiratory: clear to auscultation, normal air movement Cardiovascular: regular rate and rhythm Gastrointestinal: soft Musculoskeletal: nl extremities to inspection Results Result Diagram: 01/07/17 1140 01/07/17 1140 Results 24 hrs Laboratory Tests Test 01/07/17 21:59 01/08/17 01:30 01/08/17 08:28 01/08/17 12:11 Bedside Glucose 201 160 154 211 Medications Medications Current Medications Acetaminophen (Tylenol Tab) 650 mg Q6H PRN PO PAIN LEVEL 1-3 OR FEVER Last administered on 01/08/17 01:31; Admin Dose 650 MG; Start 01/07/17 at 17:30 Atorvastatin Calcium (Lipitor) 20 mg QHS PO Last administered on 01/07/17 19: 57; Admin Dose 20 MG; Start 01/07/17 at 21:00 Cholecalciferol (Vitamin D) 1,000 unit DAILY PO Last administered on 08:29; Admin Dose 1,000 UNIT; Start 01/08/17 at 09:00 Clonidine (Catapres) 0.1 mg Q8H PRN PO SBP > 160 Last administered on 20:00; Admin Dose 0.1 MG; Start 01/07/17 at 17:00 Docusate Sodium (Colace) 100 mg BID PO Last administered on 01/08/17 08:29; Admin Dose 100 MG; Start 01/07/17 at 21:00 Gabapentin (Neurontin) 300 mg TID PO Last administered on 01/08/17 12:08; Admin Dose 300 MG; Start 01/07/17 at 21:00 Insulin Glargine (Lantus) 5 unit QHS SC Last administered on 01/07/17 22:07; Admin Dose 5 UNIT; Start 01/07/17 at 21:00 Metoprolol Tartrate (Lopressor) 100 mg BID PO Last administered on 01/07/17 19:59; Admin Dose 100 MG; Start 01/07/17 at 21:00 Multivit/Ca Carb/ B Cmplx/FA/Prenat (Katt-Jose) 1 tab DAILY PO Last administered on 01/08/17 08:29; Admin Dose 1 TAB; Start 01/08/17 at 09:00 Zolpidem Tartrate (Ambien) 10 mg QHS PRN PO INSOMNIA; Start 01/07/17 at 17:30 Amlodipine Besylate (Norvasc) 5 mg QHS PO Last administered on 01/07/17 21:58 ; Admin Dose 5 MG; Start 01/07/17 at 21:00 Hydralazine HCl (Apresoline) 50 mg BID PO ; Start 01/08/17 at 09:00 Clopidogrel Bisulfate (plaVIX) 75 mg DAILY PO Last administered on 01/08/17 08:29; Admin Dose 75 MG; Start 01/07/17 at 19:00 Diagnostic Test (Pha) (Accu-Chek) 1 ea 02 XX ; Start 01/08/17 at 02:00 Epoetin Klever (Epogen (Esrd)) 10,000 units MoWeFr@17 SC ; Start 01/09/17 at 17: 00 Miscellaneous Information 1 ea NOTE XX ; Start 01/07/17 at 19:30 Glucose (Glutose) 15 gm Q15M PRN PO DECREASED GLUCOSE; Start 01/07/17 at 19:30 Glucose (Glutose) 22.5 gm Q15M PRN PO DECREASED GLUCOSE; Start 01/07/17 at 19: 30 Dextrose (D50w Syringe) 25 ml Q15M PRN IV DECREASED GLUCOSE; Start 01/07/17 at 19:30 Dextrose (D50w Syringe) 50 ml Q15M PRN IV DECREASED GLUCOSE; Start 01/07/17 at 19:30 Glucagon (Glucagen) 1 mg Q15M PRN IM DECREASED GLUCOSE; Start 01/07/17 at 19: 30 Glucose (Glutose) 15 gm Q15M PRN BUCCAL DECREASED GLUCOSE; Start 01/07/17 at 19:30 Lisinopril (Zestril) 20 mg DAILY PO ; Start 01/08/17 at 09:00 Guaifenesin/ Codeine Phosphate (Robitussin Ac Liquid Cup) 5 ml Q4H PRN PO COUGH Last administered on 01/08/17t 12:08; Admin Dose 5 ML; Start 01/07/17 at 19:30 JAVY BRIONES MD Jan 08, 2017 13:38
--- NOTE | 2017-01-08 18:11 | RADRPT ---
PROCEDURE: MRI Brain without contrast. CLINICAL INDICATION: Neurological deficit, right-sided weakness and slurred speech. Altered mental status. TECHNIQUE: An MRI of the brain was performed utilizing the following sequences: Sagittal and axial T1 weighted, axial T2 weighted, axial diffusion weighted with ADC mapping, coronal GRE, and axial F LAIR. COMPARISON: Brain CT 01/07/2017. FINDINGS: No diffusion weighted abnormalities are seen to suggest the presence of acute ischemia or recent inf arct. No hypointense signal abnormalities are seen on the GRE images to suggest the presence of blo od degradation products. There is no evidence of intracranial hemorrhage, mass effect, or midline s hift. No extra-axial fluid collections are seen. The ventricles and sulci are mildly enlarged indica tive of volume loss. There are mild scattered foci of T2 FLAIR hyperintensity in the white matter, which are nonspecific in etiology but likely reflect chronic small vessel ischemic changes. Small T2 hyperintense foci are noted in bilateral lentiform nuclei which likely represent dilated pe rivascular spaces versus old lacunar infarcts. Small old lacunar infarcts are noted in [place]. No abnormal intracranial vascular flow void is noted. The visualized paranasal sinuses are grossly clear. IMPRESSION: 1. No acute intracranial hemorrhage, infarction or mass. 2. Mild chronic small vessel ischemic changes. 3. Dilated perivascular spaces versus old lacunar infarcts in bilateral lentiform nuclei. Small old lacunar infarcts in [place]. 4. Mild generalized cerebral volume loss. RPTAT: HH .Ijeoma Alfredo MD, MD Date Time Electronically viewed and signed by .Ijeoma Alfredo MD, MD on 01/08/2017 18:11 .N/
--- NOTE | 2017-01-08 19:00 | RADRPT ---
PROCEDURE: MRA Brain. CLINICAL INDICATION: Neurological deficit, right-sided weakness and slurred speech. Altered mental status. TECHNIQUE: An MRA of the brain was performed without intravenous contrast utilizing the following sequences: 3-D [id number] images through the intracranial vasculature with post processed pastora l intensity projections in multiple planes. COMPARISON: Concurrent MRI of the brain. FINDINGS: The petrous, cavernous, and supraclinoid internal carotid artery segments are patent without evidenc e of significant stenosis. The proximal anterior cerebral and middle cerebral arteries are patent wi thout significant stenosis. The intradural vertebral arteries, basilar artery and posterior cerebra l arteries are patent without evidence of significant focal stenosis. No aneurysms are identified. IMPRESSION: 1. Patent major intracranial arteries. RPTAT: HH .Ijeoma Alfredo MD, Date Time Electronically viewed and signed by .Ijeoma Alfredo MD, on 01/08/2017 19:00 .N/
[2017-01-08] MEDS: AMLODIPINE 10 MG TAB PO SCH (20:29)
[2017-01-08] MEDS: ATORVASTATIN 20 MG TAB PO SCH (20:30)
[2017-01-08] MEDS: INSULIN GLARGINE [LANtus] 3 ML PEN SC SCH (20:34)
--- NOTE | 2017-01-08 23:09 | RADRPT ---
PROCEDURE: MRA Neck without contrast. CLINICAL INDICATION: Right-sided weakness, slurred speech, neurological deficit. TECHNIQUE: An MRA of the major cervical arteries was performed utilizing axial 2D time of flight a nd 3-D [id number] through the carotid bifurcations. Source and MIP images were reviewed. COMPARISON: No prior studies are available for comparison. FINDINGS: The origins of the great vessels off the aortic arch are patent without significant stenosis. The c ommon carotid and internal carotid arteries are patent without hemodynamically significant stenosis by NASCET criteria. Direct measurements of vessel diameters was made in reference to measurements of the distal internal carotid artery diameter. Bilateral vertebral arteries are patent without high- grade stenosis. IMPRESSION: 1. Patent major neck arteries. RPTAT: HFN .Ijeoma lAfredo MD, Date Time Electronically viewed and signed by .Ijeoma Alfredo MD, MD on 01/08/2017 23:09 .N/
[2017-01-09] VITALS (12 sets, daily range): BP systolic 109–142; BP diastolic 51–73; PULSE 62–82; RESP 18–20
[2017-01-09] MEDS: ACCU-CHEK XX SCH (02:00)
[2017-01-09] MEDS: MULTIVIT/CA CARB/B CMPLX/FA TAB PO SCH (09:02)
[2017-01-09] MEDS: CHOLECALCIFEROL 1,000 UNIT TAB PO SCH (09:02)
[2017-01-09] MEDS: GABAPENTIN 300 MG CAP PO SCH ×3 (09:02→20:40)
[2017-01-09] MEDS: CLOPIDOGREL 75 MG TAB PO SCH (09:02)
[2017-01-09] MEDS: CALCIUM ACETATE 667 MG CAP PO SCH ×3 (09:02→17:23)
[2017-01-09] MEDS: DOCUSATE SODIUM 100 MG CAP PO SCH ×2 (09:03→20:40)
[2017-01-09] MEDS: LISINOPRIL 20 MG TAB PO SCH (09:03)
[2017-01-09] MEDS: METOPROLOL 100 MG TAB PO SCH ×2 (09:03→20:41)
[2017-01-09 09:54] LABS: CHOL/HDL RATIO 4.6 RATIO
[2017-01-09] MEDS: INSULIN ASPART [NOVOLOG] 3 ML PEN SC SCH ×4 (10:15→20:42)
[2017-01-09] MEDS: GUAIFENESIN/CODEINE 5ML CUP PO PRN (10:15)
--- NOTE | 2017-01-09 12:41 | CONS ---
Date/Time of Note Date/Time of Note DATE: 01/09/17 TIME: 12:39 Consult Date/Type/Reason Admit Date/Time Jan 07, 2017 at 13:06 Initial Consult Date 01/08/17 Type of Consultation: Neurology Reason for Consultation TIA Ordering Provider: JAVY BRIONES MD Subjective sx improving still r/o some difficulty w balance Objective Vital Signs Date Time Temp Pulse Resp B/P Pulse Ox O2 Delivery O2 Flow Rate FiO2 01/09/17 12:22 66 01/09/17 11:37 97.7 18 142/73 98 01/07/17 22:35 Room Air Intake and Output 01/08/17 01/08/17 01/09/17 15:00 23:00 07:00 Intake Total 400 ml 800 ml 480 ml Output Total 3000 ml Balance -2600 ml 800 ml 480 ml Results/Medications Result Diagram: 01/07/17 1140 01/07/17 1140 Results 24 hrs Laboratory Tests Test 01/08/17 17:44 01/08/17 20:27 01/09/17 08:00 01/09/17 08:48 Bedside Glucose 214 153 144 Hemoglobin A1c 5.2 Triglycerides Level 194 H Cholesterol Level 130 LDL Cholesterol, Calculated 63 HDL Cholesterol 28 L Cholesterol/HDL Ratio 4.6 Test 01/09/17 12:13 Bedside Glucose 169 Medications Current Medications Acetaminophen (Tylenol Tab) 650 mg Q6H PRN PO PAIN LEVEL 1-3 OR FEVER Last administered on 01/08/17 17:54; Admin Dose 650 MG; Start 01/07/17 at 17:30 Atorvastatin Calcium (Lipitor) 20 mg QHS PO Last administered on 01/08/17 20: 30; Admin Dose 20 MG; Start 01/07/17 at 21:00 Cholecalciferol (Vitamin D) 1,000 unit DAILY PO Last administered on 09:02; Admin Dose 1,000 UNIT; Start 01/08/17 at 09:00 Clonidine (Catapres) 0.1 mg Q8H PRN PO SBP > 160 Last administered on 20:00; Admin Dose 0.1 MG; Start 01/07/17 at 17:00 Docusate Sodium (Colace) 100 mg BID PO Last administered on 01/09/17 09:03; Admin Dose 100 MG; Start 01/07/17 at 21:00 Gabapentin (Neurontin) 300 mg TID PO Last administered on 01/09/17 12:15; Admin Dose 300 MG; Start 01/07/17 at 21:00 Insulin Glargine (Lantus) 5 unit QHS SC Last administered on 01/08/17 20:34; Admin Dose 5 UNIT; Start 01/07/17 at 21:00 Metoprolol Tartrate (Lopressor) 100 mg BID PO Last administered on 01/09/17 09:03; Admin Dose 100 MG; Start 01/07/17 at 21:00 Multivit/Ca Carb/ B Cmplx/FA/Prenat (Katt-Jose) 1 tab DAILY PO Last administered on 01/09/17 09:02; Admin Dose 1 TAB; Start 01/08/17 at 09:00 Zolpidem Tartrate (Ambien) 10 mg QHS PRN PO INSOMNIA; Start 01/07/17 at 17:30 Amlodipine Besylate (Norvasc) 5 mg QHS PO Last administered on 01/08/17 20:29 ; Admin Dose 5 MG; Start 01/07/17 at 21:00 Hydralazine HCl (Apresoline) 50 mg BID PO Last administered on 01/09/17 09:02 ; Admin Dose 50 MG; Start 01/08/17 at 09:00 Clopidogrel Bisulfate (plaVIX) 75 mg DAILY PO Last administered on 01/09/17 09:02; Admin Dose 75 MG; Start 01/07/17 at 19:00 Diagnostic Test (Pha) (Accu-Chek) 1 ea 02 XX ; Start 01/08/17 at 02:00 Epoetin Klever (Epogen (Esrd)) 10,000 units MoWeFr@17 SC ; Start 01/09/17 at 17: 00 Miscellaneous Information 1 ea NOTE XX ; Start 01/07/17 at 19:30 Glucose (Glutose) 15 gm Q15M PRN PO DECREASED GLUCOSE; Start 01/07/17 at 19:30 Glucose (Glutose) 22.5 gm Q15M PRN PO DECREASED GLUCOSE; Start 01/07/17 at 19: 30 Dextrose (D50w Syringe) 25 ml Q15M PRN IV DECREASED GLUCOSE; Start 01/07/17 at 19:30 Dextrose (D50w Syringe) 50 ml Q15M PRN IV DECREASED GLUCOSE; Start 01/07/17 at 19:30 Glucagon (Glucagen) 1 mg Q15M PRN IM DECREASED GLUCOSE; Start 01/07/17 at 19: 30 Glucose (Glutose) 15 gm Q15M PRN BUCCAL DECREASED GLUCOSE; Start 01/07/17 at 19:30 Lisinopril (Zestril) 20 mg DAILY PO Last administered on 01/09/17 09:03; Admin Dose 20 MG; Start 01/08/17 at 09:00 Guaifenesin/ Codeine Phosphate (Robitussin Ac Liquid Cup) 5 ml Q4H PRN PO COUGH Last administered on 01/09/17 10:15; Admin Dose 5 ML; Start 01/07/17 at 19:30 Assessment/Plan Chief Complaint/Hosp Course 61 yo male w hx of ESRD, HLD prior CVA admitted for work up of transient dysarthria and right sided weakness. MRI Brain and MRA Head/Neck negative for acute process, prior lacunar infarcts no LVO or carotid stenosis. He is on Plavix 75 mg may continue SBP less than 140/90 LDL and HBA1C at goal PT/OT/Speech DVT ppx may fu w neurology as outpatient counseled on risk factors for stroke, he may benefit from eval for LAQUITA Problems: STEVEN GRAVES MD Jan 09, 2017 12:41
[2017-01-09] MEDS: ACETAMINOPHEN 325 MG TAB PO PRN (16:36)
[2017-01-09] MEDS ORDERED: EPOETIN 10000 UNITS/1 ML INJ (ESRD) SC SCH (17:00)
--- NOTE | 2017-01-09 18:54 | PN ---
Date/Time of Note Date/Time of Note DATE: 01/09/17 TIME: 18:50 Assessment/Plan VTE Prophylaxis VTE Prophylaxis Intervention: other Lines/Catheters IV [facility] [place] Urinary Cath still in place: No Assessment/Plan Chief Complaint/Hosp Course 1. Altered speech pattern. This patient was admitted 2 days ago with transient altered speech pattern and some right arm weakness. This speech has improved and he is now fluent and back to normal. He has some very slight right hand weakness . He is overall feeling better. He was seen by neurology. The MRI and MRA of the brain did not show any significant arterial thrombosis or stenosis. There were no acute changes. He has some old lacunar infarcts. I suspect he had a TIA. He is now on Plavix. He was previously on aspirin. 2. End-stage renal disease on maintenance hemodialysis. He is regular hemodialysis is Saturday and is due for dialysis tomorrow which I will order. 3. Anemia of chronic kidney disease on Epogen 4. Hypertension 5. Diabetes mellitus. Problems: Subjective 24 Hr Interval Summary Free Text/Dictation He is up walking around today and overall feeling better. He had an MRI and MRA of the brain and neck which did not show any significant arterial obstruction or thrombosis. He does have some old lacunar infarcts. There are no acute changes. Constitutional: improved, no complaints Gastrointestinal: no complaints Genitourinary: no complaints Neurologic: focal-weakness Exam/Review of Systems Vital Signs Vitals Vital Signs Date Time Temp Pulse Resp B/P Pulse Ox O2 Delivery O2 Flow Rate FiO2 01/09/17 16:16 71 01/09/17 15:44 98.0 19 136/64 97 01/07/17 22:35 Room Air Intake and Output 01/08/17 01/08/17 01/09/17 15:00 23:00 07:00 Intake Total 400 ml 800 ml 480 ml Output Total 3000 ml Balance -2600 ml 800 ml 480 ml Exam Constitutional: alert, oriented, well developed Respiratory: clear to auscultation, normal air movement Cardiovascular: regular rate and rhythm Musculoskeletal: nl extremities to inspection 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, focal weakness Results Result Diagram: 01/07/17 1140 01/07/17 1140 Results 24 hrs Laboratory Tests Test 01/08/17 20:27 01/09/17 08:00 01/09/17 08:48 01/09/17 12:13 Bedside Glucose 153 144 169 Hemoglobin A1c 5.2 Triglycerides Level 194 H Cholesterol Level 130 LDL Cholesterol, Calculated 63 HDL Cholesterol 28 L Cholesterol/HDL Ratio 4.6 Test 01/09/17 17:21 Bedside Glucose 148 Medications Medications Current Medications Acetaminophen (Tylenol Tab) 650 mg Q6H PRN PO PAIN LEVEL 1-3 OR FEVER Last administered on 01/09/17 16:36; Admin Dose 650 MG; Start 01/07/17 at 17:30 Atorvastatin Calcium (Lipitor) 20 mg QHS PO Last administered on 01/08/17 20: 30; Admin Dose 20 MG; Start 01/07/17 at 21:00 Cholecalciferol (Vitamin D) 1,000 unit DAILY PO Last administered on 09:02; Admin Dose 1,000 UNIT; Start 01/08/17 at 09:00 Clonidine (Catapres) 0.1 mg Q8H PRN PO SBP > 160 Last administered on 20:00; Admin Dose 0.1 MG; Start 01/07/17 at 17:00 Docusate Sodium (Colace) 100 mg BID PO Last administered on 01/09/17 09:03; Admin Dose 100 MG; Start 01/07/17 at 21:00 Gabapentin (Neurontin) 300 mg TID PO Last administered on 01/09/17 12:15; Admin Dose 300 MG; Start 01/07/17 at 21:00 Insulin Glargine (Lantus) 5 unit QHS SC Last administered on 01/08/17 20:34; Admin Dose 5 UNIT; Start 01/07/17 at 21:00 Metoprolol Tartrate (Lopressor) 100 mg BID PO Last administered on 01/09/17 09:03; Admin Dose 100 MG; Start 01/07/17 at 21:00 Multivit/Ca Carb/ B Cmplx/FA/Prenat (Katt-Jose) 1 tab DAILY PO Last administered on 01/09/17 09:02; Admin Dose 1 TAB; Start 01/08/17 at 09:00 Zolpidem Tartrate (Ambien) 10 mg QHS PRN PO INSOMNIA; Start 01/07/17 at 17:30 Amlodipine Besylate (Norvasc) 5 mg QHS PO Last administered on 01/08/17 20:29 ; Admin Dose 5 MG; Start 01/07/17 at 21:00 Hydralazine HCl (Apresoline) 50 mg BID PO Last administered on 01/09/17 09:02 ; Admin Dose 50 MG; Start 01/08/17 at 09:00 Clopidogrel Bisulfate (plaVIX) 75 mg DAILY PO Last administered on 01/09/17 09:02; Admin Dose 75 MG; Start 01/07/17 at 19:00 Diagnostic Test (Pha) (Accu-Chek) 1 ea 02 XX ; Start 01/08/17 at 02:00 Epoetin Klever (Epogen (Esrd)) 10,000 units MoWeFr@17 SC Last administered on 17:24; Admin Dose 10,000 UNITS; Start 01/09/17 at 17:00 Miscellaneous Information 1 ea NOTE XX ; Start 01/07/17 at 19:30 Glucose (Glutose) 15 gm Q15M PRN PO DECREASED GLUCOSE; Start 01/07/17 at 19:30 Glucose (Glutose) 22.5 gm Q15M PRN PO DECREASED GLUCOSE; Start 01/07/17 at 19: 30 Dextrose (D50w Syringe) 25 ml Q15M PRN IV DECREASED GLUCOSE; Start 01/07/17 at 19:30 Dextrose (D50w Syringe) 50 ml Q15M PRN IV DECREASED GLUCOSE; Start 01/07/17 at 19:30 Glucagon (Glucagen) 1 mg Q15M PRN IM DECREASED GLUCOSE; Start 01/07/17 at 19: 30 Glucose (Glutose) 15 gm Q15M PRN BUCCAL DECREASED GLUCOSE; Start 01/07/17 at 19:30 Lisinopril (Zestril) 20 mg DAILY PO Last administered on 01/09/17 09:03; Admin Dose 20 MG; Start 01/08/17 at 09:00 Guaifenesin/ Codeine Phosphate (Robitussin Ac Liquid Cup) 5 ml Q4H PRN PO COUGH Last administered on 01/09/17 10:15; Admin Dose 5 ML; Start 01/07/17 at 19:30 JAVY BRIONES MD Jan 09, 2017 18:54
[2017-01-09] MEDS: ATORVASTATIN 20 MG TAB PO SCH (20:40)
[2017-01-09] MEDS: AMLODIPINE 10 MG TAB PO SCH (20:42)
[2017-01-09] MEDS: INSULIN GLARGINE [LANtus] 3 ML PEN SC SCH (20:52)
[2017-01-10] VITALS (17 sets, daily range): BP systolic 114–155; BP diastolic 58–77; PULSE 70–79; RESP 18–20
[2017-01-10] MEDS: ACCU-CHEK XX SCH (02:00)
[2017-01-10] MEDS: GUAIFENESIN/CODEINE 5ML CUP PO PRN ×2 (03:47→08:48)
[2017-01-10] MEDS: INSULIN ASPART [NOVOLOG] 3 ML PEN SC SCH ×2 (08:00→14:16)
[2017-01-10] MEDS: LISINOPRIL 20 MG TAB PO SCH (08:40)
[2017-01-10] MEDS: METOPROLOL 100 MG TAB PO SCH (08:40)
[2017-01-10] MEDS: ACETAMINOPHEN 325 MG TAB PO PRN (08:41)
[2017-01-10] MEDS: CALCIUM ACETATE 667 MG CAP PO SCH ×2 (08:41→14:13)
[2017-01-10] MEDS: MULTIVIT/CA CARB/B CMPLX/FA TAB PO SCH (08:41)
[2017-01-10] MEDS: GABAPENTIN 300 MG CAP PO SCH ×2 (08:41→14:13)
[2017-01-10] MEDS: CLOPIDOGREL 75 MG TAB PO SCH (08:41)
[2017-01-10] MEDS: DOCUSATE SODIUM 100 MG CAP PO SCH (08:41)
[2017-01-10] MEDS: CHOLECALCIFEROL 1,000 UNIT TAB PO SCH (08:41)
--- NOTE | 2017-01-10 09:48 | PDOCDIS ---
Discharge Instructions CONDITION Patient Condition: Good HOME CARE INSTRUCTIONS: Diet Instructions: 2gm NaSpecial Diet: carb count ACTIVITY: Activity Restrictions: Slowly Increase Activity Rest between Activity Bathing Restrictions: Shower FOLLOW UP/APPOINTMENTS Follow-up Plan JAVY Abdi MD Jan 10, 2017 09:48
[2017-01-10] MEDS ORDERED: CLOP75TA28 PO (09:50)
== END 2017-01-10 16:11 | disposition home or self-care (01) | DRG 69 ==
LOC: E/R 11:37 → MS3 13:06 → MS4 01-08 00:48
PROVIDERS: ADMIT Internal Medicine; ATTEND Internal Medicine
DX: G45.9 Transient cerebral ischemic attack, unspecified (principal); I12.0 Hypertensive chronic kidney disease with stage 5 chronic kidney disease or end stage renal disease; N18.6 End stage renal disease; E11.22 Type 2 diabetes mellitus with diabetic chronic kidney disease; Z99.2 Dependence on renal dialysis; E78.5 Hyperlipidemia, unspecified; Z79.82 Long term (current) use of aspirin; E66.9 Obesity, unspecified; Z68.34 Body mass index [BMI] 34.0-34.9, adult; D63.8 Anemia in other chronic diseases classified elsewhere
CPT/HCPCS: 36415; 70450; 70544; 70549; 70551; 71010; 80053; 80061; 81001; 82962; 83036; 84436; 84479; 84484; 85025; 85610; 85730; 90935; 92610; 93005; 93880; 97162; J1815; Q4081

== ENCOUNTER 2017-02-06 05:17 | Day surgery (SDC) | END 2017-02-06 09:40 | disposition home or self-care (01) ==